=== PATIENT | male | born 1985 | race Caucasian/White ===

== ENCOUNTER 2024-11-06 15:53 | Emergency (ER) | payer OTHER ==
[2024-11-06 16:51] LABS: Hematocrit 45.6 % (42.0-52.0); Hemoglobin 15.2 g/dL (14.0-18.0); Mean Corpuscular Hemoglobin 32.1 pg (27.0-31.0); Mean Corpuscular Volume 96.2 fl (78.0-98.0); Platelet Count 221 10x3/uL (130-400); Red Blood Cell (RBC) Count 4.74 mill/uL (4.70-6.10); White Blood Cell (WBC) Count 4.3 10x3/uL (4.8-10.8)
[2024-11-06 17:04] LABS: Anion Gap 19 mmol/L (10-20); BUN (Urea Nitrogen) 4 mg/dL (8.9-20.6); Bilirubin, Total 0.9 mg/dL (0.3-1.2); Calc. Creatinine Clearance 0 mL/min (70-130); Calcium 8.1 mg/dL (7.8-10.44); Carbon Dioxide 20 mmol/L (22-29); Chloride 106 mmol/L (98-107); Glucose 98 mg/dL (70-105); Potassium 3.5 mmol/L (3.5-5.1); Sodium 141 mmol/L (136-145)
[2024-11-06 17:05] LABS: ALT (SGPT) 274 U/L (Less than 45); AST (SGOT) 403 U/L (11-34); Albumin 3.1 g/dL (3.1-4.5); Alkaline Phosphatase 180 U/L (40-110); Globulin 3.0 g/dL (2.4-3.5)
[2024-11-06 17:06] LABS: Troponin I Less than 0.010 ng/mL (< 0.028)
[2024-11-06 17:07] LABS: MDiff Complete? YES; Platelet Adequacy Comment Appears Adequate
[2024-11-06] MEDS ORDERED: Ondansetron PF 4 MG/2 ML Vial ONE (17:42)
== END 2024-11-06 18:29 | disposition home or self-care (01) ==
LOC: BURERS 15:53
DX: M79.604 Pain in right leg (principal); R07.89 Other chest pain; I10 Essential (primary) hypertension; F17.210 Nicotine dependence, cigarettes, uncomplicated; Z79.899 Other long term (current) drug therapy
CPT/HCPCS: 36415; 71045; 80053; 83880; 84484; 85025; 93005; 94760; 96374; 96375; J2405; J3010